=== PATIENT | female | born 1970 | race Two or more races ===

== ENCOUNTER 2024-12-28 07:17 | Emergency (ER) | payer OTHER ==
[~2024-12-28] VITALS: Ht 157.5 cm; Wt 78.0 kg
[2024-12-28] MEDS ORDERED: SYNTHROID88 MCG (07:44)
[2024-12-28] MEDS ORDERED: SIMVASTATIN5 MG (07:45)
[2024-12-28] MEDS ORDERED: ZESTRIL10 M1 (07:45)
[2024-12-28] MEDS ORDERED: TAMSULOSIN HCL 0.4 MG CAP PO ONE (08:30)
[2024-12-28] MEDS ORDERED: KETOROLAC TROMETHAMINE 30 MG VIAL IV ONE (08:30)
[2024-12-28] MEDS ORDERED: 0.9 % SODIUM CHLORIDE 1,000 ML IV SCH (08:30)
[2024-12-28 08:47] LABS: BASO % 0.6 % (0.1-1.2); EOS # 0.09 (0.04-0.54); EOS % 0.9 % (0.7-7.0); LYMPH # 1.32 (1.18-3.74); LYMPH % 13.0 % (19.3-53.1); MEAN PLATELET VOLUME 9.30 fl (9.4-12.4); MONO # 0.47 (0.24-0.82); MONO % 4.6 % (4.7-12.5); NEUT # 8.13 (1.56-6.13); NEUT % 80.3 % (34.0-71.1); RED CELL DISTRIBUTION WIDTH 13.9 % (11.6-14.4)
[2024-12-28 09:14] LABS: ALT/SGPT 39.0 U/L (12-78); AST/SGOT 20.0 U/L (15-37); BILIRUBIN TOTAL 0.4 mg/dL (0.3-1.2); BUN CREA RATIO 16.0 (7.0-25.0); CREATININE SERUM 0.85 mg/dL (0.55-1.02); GFR 69.44; GLOBULINA 3.9 G/DL (2.4-3.5); GLUCOSE FASTING 131.0 mg/dL (65-100); OSMOLALITY SERUM 285.0 MOSM/KG (275-295)
[2024-12-28 09:35] LABS: URINE APPEARANCE Clear; URINE BILIRRUBIN Negative (NEGATIVE); URINE BLOOD Moderate; URINE COLOR Yellow; URINE GLUCOSE Negative (NEGATIVE); URINE KETONE Negative (NEGATIVE); URINE LEUKOCYTE Small; URINE NITRATE Negative; URINE PROTEIN Negative (NEGATIVE); URINE UROBILINOGEN 0.2 E.U./dl
[2024-12-28 09:36] LABS: URINE BACTERIA 161.9 uL (0.0-1933); URINE EPITHELIAL CELLS 10.2 uL (0.0-38.8); URINE RBC 161.4 uL (0.0-20.8); URINE WBC 22.7 uL (0.0-23.2)
[2024-12-28 09:47] LABS: URINE CAST 0.29 uL (0.0-1.40)
[2024-12-28] MEDS ORDERED: KETO10TA2 PO (10:06)
[2024-12-28] MEDS ORDERED: TAMS0.4C PO (10:06)
[2024-12-28] MEDS ORDERED: CEPHALEXIN500 MG PO (10:06)
== END 2024-12-28 10:18 | disposition home or self-care (01) ==
LOC: ER 07:17
PROVIDERS: General Practice
DX: R10.9 Unspecified abdominal pain (principal); I10 Essential (primary) hypertension; N20.1 Calculus of ureter